=== PATIENT | female | born 1935 | race African-American/Black ===

== ENCOUNTER 2017-03-01 12:31 | Emergency (ER) | payer MEDICARE ==
[~2017-03-01] VITALS: Ht 165.1 cm; Wt 64.0 kg
[~2017-03-01 12:31] MED LIST: DYZ PO; SIMV20TA6 PO
[2017-03-01] MEDS ORDERED: KETOROLAC 60MG/2ML VIAL IM ONE (14:45)
[2017-03-01] MEDS ORDERED: KETOROLAC 30MG/ML VIAL IV ONE (15:00)
[2017-03-01 16:23] VITALS: BP 154/61
== END 2017-03-01 17:02 | disposition home or self-care (01) ==
LOC: ER 13:08
DX: M79.661 Pain in right lower leg (principal); I10 Essential (primary) hypertension; M19.90 Unspecified osteoarthritis, unspecified site; M54.30 Sciatica, unspecified side; Z88.0 Allergy status to penicillin; Z91.018 Allergy to other foods
CPT/HCPCS: 96374; 99284; J1885

== ENCOUNTER 2018-03-06 11:07 | Inpatient (IN) | payer MEDICARE ==
[~2018-03-06] VITALS: Ht 165.1 cm; Wt 61.7 kg
[2018-03-06 12:16] LABS: BASOPHILS % 1.8 % (0.0-2.0); EOSINOPHILS % 3.3 % (0.0-5.0); HEMATOCRIT. 34.3 % (36.0-48.0); HEMOGLOBIN. 11.6 g/dL (12.0-16.0); LYMPHOCYTES % 26.7 % (20.0-50.0); MEAN CORPUSCULAR HEMOGLOBIN 33.4 pg (28.0-32.0); MEAN CORPUSCULAR VOLUME 98.4 fL (81.0-99.0); MEAN PLATELET VOLUME 7.7 fl (7.4-10.4); MONOCYTES % 10.3 % (2.0-8.0); NEUTROPHILS % 57.9 % (40.0-76.0); PLATELET 232 x1000/uL (130-400); RED BLOOD CELL COUNT 3.48 mill/uL (4.2-5.4); RED CELL DISTRIBUTION WIDTH 14.2 % (11.6-14.6)
[2018-03-06 12:26] LABS: CHLORIDE 102 mEq/L (98-107)
[2018-03-06 12:33] LABS: T4 FREE 0.55 ng/dL (0.76-1.46)
[2018-03-06] MEDS ORDERED: ENOXAPARIN 60MG/0.6ML SYR SUBCUT ONE (14:00)
[2018-03-06] MEDS ORDERED: ACETAMINOPHEN WITH CODEINE 300/30MG TABLET PO ONE (14:00)
[2018-03-06] MEDS ORDERED: DOCUSATE SODIUM 100MG CAPSULE PO PRN (17:00)
[2018-03-06] MEDS ORDERED: ONDANSETRON HCL 4MG/2ML INJ IV PRN (17:00)
[2018-03-06] MEDS ORDERED: ACETAMINOPHEN 650MG SUPP PR PRN (17:00)
[2018-03-06] MEDS ORDERED: MAGNESIUM/ALUMINUM HYDROXIDE/SIMETHICONE 30ML UDC PO PRN (17:00)
[2018-03-06] MEDS ORDERED: DIPHENHYDRAMINE 50MG/ML VIAL IV PRN (17:00)
[2018-03-06] MEDS ORDERED: CLONIDINE 0.1MG TABLET PO PRN (17:00)
[2018-03-06] MEDS ORDERED: ACETAMINOPHEN 325MG TABLET PO PRN (17:00)
[2018-03-06] MEDS ORDERED: HYDROCODONE/ACETAMINOPHEN 5/325MG TABLET PO PRN (17:00)
[2018-03-06] MEDS ORDERED: NA PHOS,M-B/NA PHOS,DI-BA ENEMA 118ML PR PRN (17:00)
[2018-03-06] MEDS ORDERED: GUAIFENESIN 200MG/10ML SUGAR FREE UDC PO PRN (17:00)
[2018-03-06] MEDS ORDERED: IPRATROPIUM/ALBUTEROL 0.5-3(2.5)MG/3ML NEB INH PRN (17:00)
[2018-03-06 17:22] LABS: CLARITY URINE CLEAR (CLEAR); COLOR URINE YELLOW (YELLOW); KETONES URINE NEGATIVE (NEGATIVE); LEUKOCYTE ESTERASE URINE NEGATIVE (NEGATIVE); NITRITE URINE NEGATIVE (NEGATIVE); OCCULT BLOOD URINE NEGATIVE (NEGATIVE); PH URINE 5.5 (4.5-8.0); PROTEIN URINE NEGATIVE (NEGATIVE); SPECIFIC GRAVITY URINE 1.009 (1.005-1.030); UROBILINOGEN URINE 0.2 E.U./dL (0.2-1.0)
[2018-03-06 17:43] LABS: *AMPHETAMINES SCREEN URINE NEGATIVE (NEGATIVE); *BARBITURATES SCREEN URINE NEGATIVE (NEGATIVE); *BENZODIAZEPINES SCREEN URINE NEGATIVE (NEGATIVE); *COCAINE SCREEN URINE NEGATIVE (NEGATIVE); CANNABINOID URINE SCREEN NEGATIVE (NEGATIVE); METHADONE URINE SCREEN NEGATIVE (NEGATIVE); OPIATES URINE SCREEN NEGATIVE (NEGATIVE); PHENCYCLIDINE URINE SCREEN NEGATIVE (NEGATIVE)
[2018-03-06 22:20] VITALS: BP 160/72
[2018-03-06] MEDS ORDERED: DIPHENHYDRAMINE 25MG CAPSULE PO PRN (22:30)
[2018-03-06] MEDS ORDERED: ATORVASTATIN CALCIUM 20MG TABLET PO SCH (22:30)
[2018-03-06 23:10] VITALS: BP 160/72
[2018-03-06] MEDS: METOPROLOL TARTRATE 25MG TABLET PO SCH (23:18)
[2018-03-06] MEDS: AMLODIPINE 5MG TABLET PO SCH (23:19)
[2018-03-07 02:58] LABS: CREATINE KINASE 77 IU/L (26-192); CREATINE KINASE MB FRACTION 1.3 ng/mL (0.5-3.6)
[2018-03-07 04:00] VITALS: BP 149/80
[2018-03-07 06:57] LABS: BASOPHILS % 1.9 % (0.0-2.0); EOSINOPHILS % 4.5 % (0.0-5.0); HEMATOCRIT. 35.5 % (36.0-48.0); HEMOGLOBIN. 12.2 g/dL (12.0-16.0); MEAN CORPUSCULAR HEMOGLOBIN 33.3 pg (28.0-32.0); MEAN CORPUSCULAR VOLUME 97.2 fL (81.0-99.0); MONOCYTES % 9.8 % (2.0-8.0); NEUTROPHILS % 44.8 % (40.0-76.0); PLATELET 233 x1000/uL (130-400); RED BLOOD CELL COUNT 3.65 mill/uL (4.2-5.4); RED CELL DISTRIBUTION WIDTH 14.5 % (11.6-14.6)
[2018-03-07 07:21] LABS: CHLORIDE 106 mEq/L (98-107)
[2018-03-07 07:40] LABS: CREATINE KINASE 84 IU/L (26-192); CREATINE KINASE MB FRACTION 1.2 ng/mL (0.5-3.6); HDL CHOLESTEROL 87 mg/dL (40-59); LDL CHOLESTEROL 122 mg/dL (5-100)
[2018-03-07 08:00] VITALS: BP 169/59
[2018-03-07] MEDS: METOPROLOL TARTRATE 25MG TABLET PO SCH (09:00)
[2018-03-07] MEDS ORDERED: ENOXAPARIN 40MG/0.4ML SYR SUBCUT SCH (09:00)
[2018-03-07] MEDS ORDERED: ASPIRIN 81MG EC TABLET PO SCH (09:00)
[2018-03-07] MEDS ORDERED: EZETIMIBE 10MG TABLET PO SCH (09:30)
[2018-03-07] MEDS: AMLODIPINE 5MG TABLET PO SCH (09:44)
[2018-03-07] MEDS ORDERED: LOSARTAN POTASSIUM 25 MG TABLET PO SCH (11:30)
[2018-03-07 12:00] VITALS: BP 140/49
[2018-03-07 16:00] VITALS: BP 144/60
[2018-03-07 16:53] VITALS: BP 138/83
== END 2018-03-07 17:45 | disposition home or self-care (01) | DRG 645 ==
LOC: ER 11:07 → 8WST 13:58 → EDBEDREQTM 14:01 → EDBEDREQ 14:01 → SUPCPDRO 16:46 → CANRESERV 21:16 → ENRESERV 21:16 → 5WST 23:05
PROVIDERS: ADMIT Internal Medicine; ATTEND Internal Medicine
DX: E04.2 Nontoxic multinodular goiter (principal); I48.91 Unspecified atrial fibrillation; J44.9 Chronic obstructive pulmonary disease, unspecified; R79.89 Other specified abnormal findings of blood chemistry; J39.8 Other specified diseases of upper respiratory tract; D64.9 Anemia, unspecified; E03.9 Hypothyroidism, unspecified; R00.1 Bradycardia, unspecified; R73.9 Hyperglycemia, unspecified; E05.90 Thyrotoxicosis, unspecified without thyrotoxic crisis or storm; E78.00 Pure hypercholesterolemia, unspecified; E78.5 Hyperlipidemia, unspecified; I11.9 Hypertensive heart disease without heart failure; M19.90 Unspecified osteoarthritis, unspecified site; Z82.49 Family history of ischemic heart disease and other diseases of the circulatory system; Z90.710 Acquired absence of both cervix and uterus; Z88.0 Allergy status to penicillin; Z91.018 Allergy to other foods; Z79.899 Other long term (current) drug therapy
CPT/HCPCS: 36415; 71045; 76536; 80048; 80061; 80305; 82550; 82553; 83036; 83735; 83880; 84439; 84443; 84484; 85379; 93005; 93306; 93970; 96372; 99285; J1650

== ENCOUNTER 2024-05-11 17:39 | Emergency (ER) | payer BC, MEDICARE ==
[~2024-05-11] VITALS: Ht 162.6 cm; Wt 67.0 kg
[~2024-05-11 17:39] MED LIST changes: -DYZ PO; +SIMV-43 PO; -SIMV20TA6 PO
[2024-05-11 17:41] VITALS: O2SAT 98
[2024-05-11] MEDS: IBUPROFEN 400MG TABLET PO ONE (18:27)
[2024-05-11] MEDS: LIDOCAINE 5% PATCH TOP ONE (18:27)
[2024-05-11 18:35] VITALS: TEMP 37.05852
[2024-05-11] MEDS ORDERED: DEXA2TAB MT (19:31)
[2024-05-11 19:50] VITALS: BP 151/72; PULSE 96; RESP 17; O2SAT 98
== END 2024-05-11 20:05 | disposition home or self-care (01) ==
LOC: ER 17:39
DX: M16.0 Bilateral primary osteoarthritis of hip (principal); I10 Essential (primary) hypertension; Z88.0 Allergy status to penicillin; Z79.899 Other long term (current) drug therapy
CPT/HCPCS: 72170; 99283; A4606